=== PATIENT | male | born 1945 ===

== ENCOUNTER 2018-06-02 16:33 | Inpatient (IN) | payer OTHER ==
[~2018-06-02] VITALS: Ht 188 cm; Wt 63.5 kg
[2018-06-04] MEDS ORDERED: FUROSEMIDE20 MG PO (07:38)
[2018-06-04] MEDS ORDERED: GLIMEPIRIDE4 MG PO (07:38)
[2018-06-04] MEDS ORDERED: LOSARTAN POTASS25 MG PO (07:38)
[2018-06-04] MEDS ORDERED: CARVEDILOL6.25 MG PO (07:38)
[2018-06-04] MEDS ORDERED: ATORVASTATIN CA40 MG PO (07:39)
[2018-06-04] MEDS ORDERED: AMLODIPINE BES2.5 MG PO (07:40)
[2018-06-04] MEDS ORDERED: ACTIGALL300 MG PO (07:40)
[2018-06-04] MEDS ORDERED: LACTULOSE10 GM/15 M PO (07:41)
[2018-06-04] MEDS ORDERED: XARELTO20 MG (07:44)
[2018-06-04] MEDS ORDERED: XARELTO20 MG PO (07:44)
== END 2018-06-06 19:41 | disposition home or self-care (01) | DRG 191 ==
LOC: ER 16:33 → MEDI 20:31
PROC: 4A033R1 Measurement of Arterial Saturation, Peripheral, Percutaneous Approach (ICD-10-PCS; principal; 2018-06-02)
PROC: 3E0F7GC Introduction of Other Therapeutic Substance into Respiratory Tract, Via Natural or Artificial Opening (ICD-10-PCS; 2018-06-02)
PROC: BW40ZZZ Ultrasonography of Abdomen (ICD-10-PCS; 2018-06-02)
PROC: B246ZZZ Ultrasonography of Right and Left Heart (ICD-10-PCS; 2018-06-05)
DX: J44.1 Chronic obstructive pulmonary disease with (acute) exacerbation (principal); J45.41 Moderate persistent asthma with (acute) exacerbation; I50.20 Unspecified systolic (congestive) heart failure; J94.8 Other specified pleural conditions; J20.9 Acute bronchitis, unspecified; J44.0 Chronic obstructive pulmonary disease with (acute) lower respiratory infection; I11.0 Hypertensive heart disease with heart failure; I25.10 Atherosclerotic heart disease of native coronary artery without angina pectoris; E11.9 Type 2 diabetes mellitus without complications; E78.4 Other hyperlipidemia; Z95.1 Presence of aortocoronary bypass graft; Z95.810 Presence of automatic (implantable) cardiac defibrillator; R10.11 Right upper quadrant pain

== ENCOUNTER 2018-11-21 09:48 | Outpatient (CLI) | payer OTHER ==
[~2018-11-21 09:48] MED LIST: ACTIGALL300 MG PO; AMLODIPINE BES2.5 MG PO; ATORVASTATIN CA40 MG PO; CARVEDILOL6.25 MG PO; FUROSEMIDE20 MG PO; GLIMEPIRIDE4 MG PO; LACTULOSE10 GM/15 M PO; LOSARTAN POTASS25 MG PO; XARELTO20 MG; XARELTO20 MG PO
== END 2018-11-21 09:59 | disposition home or self-care (01) ==
LOC: TOM 09:48
DX: J43.2 Centrilobular emphysema (principal); Z87.891 Personal history of nicotine dependence; I48.2 Chronic atrial fibrillation; I50.89 Other heart failure; R06.02 Shortness of breath